=== PATIENT | male | born 1960 | race African-American/Black ===

== ENCOUNTER 2021-06-06 18:38 | Inpatient (IN) ==
[2021-06-06] MEDS ORDERED: SODIUM CHLORIDE 0.9% 1,000 ML IV STA (19:10)
[2021-06-06 19:41] LABS: Basophils % 0.2 % (0.0-0.8); Eosinophils % 0.1 % (0.00-10.9); Hematocrit 44.3 VOL% (42.0-52.0); Hemoglobin 13.7 GM/DL (14.0-18.0); Immature Granulocytes Absolute 0.62 #; Lymphocytes # 1.2 10*3/uL (1.4-4.0); Lymphocytes % 7.5 % (21.2-54.2); Mean Corpuscular HGB Conc 30.9 GM/DL (32-36); Mean Corpuscular Volume 85.5 FL (87-102); Mean Platelet Volume 11.1 FL (9.6-12.0); Monocytes % 3.2 % (1.7-12.7); NRBC # 0.07 10*3/uL; Platelet Count 312 T/CUMM (130-400); Red Blood Count 5.18 MC/CUMM (3.8-5.5); Red Cell Distribution Width 13.6 % (9.3-17.3); White Blood Count 15.6 T/CUMM (4-12)
[2021-06-06 19:48] LABS: ABG Base Excess 2.6 MMOL/L (-2.5-2.5); ABG HCO3 26.5 MMOL/L (20-26); ABG Oxygen Saturation 87.5 % (95-100); ABG PH 7.468 (7.35-7.45); ABG TCO2 22.8 MMOL/L (23-27)
[2021-06-06] MEDS ORDERED: SODIUM CHLORIDE 0.9% 2,000 ML IV STA (20:12)
[2021-06-06] MEDS ORDERED: DEXAMETHASONE 4 MG/1 ML VIAL IV STA (20:12)
[2021-06-06] MEDS ORDERED: PIPERACILLIN/TAZOBACTAM 3,375 MG in SODIUM CHLORIDE 0.9% 100 ML IV STA (20:12)
[2021-06-06 20:16] LABS: Albumin 2.6 G/DL (3.4-5.0); Bilirubin,Total 1.3 MG/DL (0.20-1.00); Calcium 8.7 MG/DL (8.5-10.1); Osmolality,Calculated 278.1 MOS/KG (273-304); Potassium 4.1 MMOL/L (3.5-5.1); Total Protein 8.2 G/DL (6.4-8.2)
[2021-06-06 20:26] LABS: Lymphocytes 10 % (20-55); Metamyelocytes 1 %; Microcytosis Slight; Myelocytes 1 %; Segmented Neutrophils 87 % (50-85); Total Cells Counted 100
[2021-06-06 20:27] LABS: Platelet Estimate Normal; Polychromasia Few
[2021-06-06 20:34] LABS: INR 1.3; PT Patient Result 14.5 SECS (10.5-12.0)
[2021-06-06] MEDS ORDERED: INSULIN REGULAR 100 UNIT/ML IV STA (20:36)
[2021-06-06] MEDS ORDERED: ONDANSETRON 4 MG/2 ML VIAL IV PRN (21:39)
[2021-06-06] MEDS ORDERED: DEXTROSE 50% 25 GM/50 ML VIAL IV PRN ×2 (21:39→22:03)
[2021-06-06] MEDS ORDERED: GLUCAGON 1 MG VIAL IM PRN ×2 (21:39→22:03)
[2021-06-06] MEDS ORDERED: ACETAMINOPHEN 325 MG TABLET PO PRN (21:39)
[2021-06-06] MEDS ORDERED: SODIUM CHLORIDE 0.9% 1,000 ML IV SCH (22:00)
[2021-06-06] MEDS: ENOXAPARIN 150 MG/ML SYRINGE SUBCUT SCH (22:00)
[2021-06-07] MEDS ORDERED: REMDESIVIR 200 MG in SODIUM CHLORIDE 0.9% 210 ML IV ONE (00:30)
[2021-06-07] MEDS ORDERED: REMDESIVIR 100 MG in SODIUM CHLORIDE 0.9% 100 ML IV SCH (00:45)
[2021-06-07] MEDS: PIPERACILLIN/TAZOBACTAM 3,375 MG in SODIUM CHLORIDE 0.9% 100 ML IV SCH ×3 (01:10→17:51)
[2021-06-07 04:28] LABS: Basophils % 0.1 % (0.0-0.8); Hematocrit 39.4 VOL% (42.0-52.0); Hemoglobin 12.4 GM/DL (14.0-18.0); Immature Granulocytes Absolute 0.42 #; Lymphocytes # 1.1 10*3/uL (1.4-4.0); Lymphocytes % 7.7 % (21.2-54.2); Mean Corpuscular HGB Conc 31.5 GM/DL (32-36); Mean Corpuscular Volume 85.3 FL (87-102); Mean Platelet Volume 11.3 FL (9.6-12.0); Monocytes % 2.6 % (1.7-12.7); NRBC # 0.03 10*3/uL; Neutrophils % 86.6 % (38.7-73.9); Platelet Count 251 T/CUMM (130-400); Red Blood Count 4.62 MC/CUMM (3.8-5.5); Red Cell Distribution Width 13.8 % (9.3-17.3); White Blood Count 13.8 T/CUMM (4-12)
[2021-06-07 04:50] LABS: Calcium 7.9 MG/DL (8.5-10.1); Osmolality,Calculated 285.2 MOS/KG (273-304); Potassium 4.7 MMOL/L (3.5-5.1)
[2021-06-07 04:58] LABS: Ferritin 713.4 ng/ml (26-388)
[2021-06-07] MEDS: FUROSEMIDE 40 MG/4 ML VIAL IV SCH ×4 (09:00→18:57)
[2021-06-07] MEDS: ZINC SULFATE 220 MG CAPSULE PO SCH (09:00)
[2021-06-07] MEDS ORDERED: INSULIN DETEMIR 100 UNIT/ML SUBCUT SCH (09:00)
[2021-06-07] MEDS ORDERED: DEXAMETHASONE INJ 10 MG in SODIUM CHLORIDE 0.9% 50 ML IV SCH (09:00)
[2021-06-07] MEDS: ALBUMIN 25% 25 GM/100 ML VIAL IV SCH ×4 (09:00→21:58)
[2021-06-07] MEDS: CHOLECALCIFEROL 5,000 UNIT TABLET PO SCH (09:00)
[2021-06-07] MEDS: CETIRIZINE 10 MG TABLET PO SCH (09:00)
[2021-06-07] MEDS: AZITHROMYCIN 250 MG TABLET PO SCH (09:00)
[2021-06-07] MEDS: ASCORBIC ACID 500 MG TABLET PO SCH ×2 (09:00→21:04)
[2021-06-07] MEDS: methylPREDNISolone SOD SUC 125 MG/2 ML VIAL IV SCH ×3 (09:00→21:06)
[2021-06-07] MEDS: FAMOTIDINE 20 MG TABLET PO SCH ×2 (09:00→21:04)
[2021-06-07] MEDS: INSULIN GLARGINE 100 UNIT/ML SUBCUT SCH ×2 (09:20→21:05)
[2021-06-07] MEDS: INSULIN REGULAR 100 UNIT/ML SUBCUT SCH ×4 (09:20→21:05)
[2021-06-07] MEDS: SODIUM CHLORIDE 0.9% 1,000 ML IV SCH ×3 (11:14→18:08)
[2021-06-07] MEDS: MELATONIN 3 MG TABLET PO SCH (21:04)
[2021-06-07] MEDS: ENOXAPARIN 150 MG/ML SYRINGE SUBCUT SCH (21:58)
[2021-06-08] MEDS: FUROSEMIDE 40 MG/4 ML VIAL IV SCH ×7 (00:02→23:12)
[2021-06-08] MEDS: PIPERACILLIN/TAZOBACTAM 3,375 MG in SODIUM CHLORIDE 0.9% 100 ML IV SCH ×4 (00:05→23:11)
[2021-06-08] MEDS: ALBUMIN 25% 25 GM/100 ML VIAL IV SCH ×6 (01:40→22:15)
[2021-06-08] MEDS: methylPREDNISolone SOD SUC 125 MG/2 ML VIAL IV SCH ×4 (02:39→22:16)
[2021-06-08] MEDS: SODIUM CHLORIDE 0.9% 1,000 ML IV SCH ×2 (04:08→15:06)
[2021-06-08 04:11] LABS: Basophils % 0.2 % (0.0-0.8); Hematocrit 37.4 VOL% (42.0-52.0); Immature Granulocytes % 1.8 %; Immature Granulocytes Absolute 0.31 #; Lymphocytes # 0.8 10*3/uL (1.4-4.0); Lymphocytes % 4.8 % (21.2-54.2); Mean Corpuscular HGB Conc 32.1 GM/DL (32-36); Mean Corpuscular Volume 82.7 FL (87-102); Mean Platelet Volume 11.5 FL (9.6-12.0); Monocytes % 1.9 % (1.7-12.7); NRBC # 0.04 10*3/uL; Neutrophils % 91.3 % (38.7-73.9); Platelet Count 249 T/CUMM (130-400); Red Blood Count 4.52 MC/CUMM (3.8-5.5); Red Cell Distribution Width 13.4 % (9.3-17.3); White Blood Count 16.8 T/CUMM (4-12)
[2021-06-08 04:36] LABS: Band Neutrophils 2 % (0-10); Lymphocytes 2 % (20-55); Segmented Neutrophils 94 % (50-85); Total Cells Counted 100
[2021-06-08 04:37] LABS: Hypochromasia 1+; Microcytosis 1+
[2021-06-08 04:38] LABS: Platelet Estimate Normal; Polychromasia Slight
[2021-06-08 04:58] LABS: Albumin 3.2 G/DL (3.4-5.0); Calcium 8.5 MG/DL (8.5-10.1); Total Protein 7.2 G/DL (6.4-8.2)
[2021-06-08 04:59] LABS: Potassium 3.4 MMOL/L (3.5-5.1)
[2021-06-08 05:00] LABS: Ferritin 698.9 ng/ml (26-388)
[2021-06-08] MEDS ORDERED: DEXTROSE 50% 25 GM/50 ML VIAL IV PRN (08:07)
[2021-06-08] MEDS: CHOLECALCIFEROL 5,000 UNIT TABLET PO SCH (08:55)
[2021-06-08] MEDS: CETIRIZINE 10 MG TABLET PO SCH (08:55)
[2021-06-08] MEDS: ASCORBIC ACID 500 MG TABLET PO SCH ×2 (08:55→22:00)
[2021-06-08] MEDS: FAMOTIDINE 20 MG TABLET PO SCH ×2 (08:55→22:00)
[2021-06-08] MEDS: AZITHROMYCIN 250 MG TABLET PO SCH (08:55)
[2021-06-08] MEDS: ZINC SULFATE 220 MG CAPSULE PO SCH (08:55)
[2021-06-08] MEDS ORDERED: INSULIN GLARGINE 100 UNIT/ML SUBCUT SCH (09:00)
[2021-06-08] MEDS: INSULIN REGULAR 100 UNIT/ML SUBCUT SCH ×4 (10:00→23:09)
[2021-06-08] MEDS ORDERED: REMDESIVIR 100 MG in SODIUM CHLORIDE 0.9% 100 ML IV SCH (21:00)
[2021-06-08] MEDS: ENOXAPARIN 150 MG/ML SYRINGE SUBCUT SCH (22:00)
[2021-06-08] MEDS: MELATONIN 3 MG TABLET PO SCH (22:17)
[2021-06-08] MEDS: INSULIN GLARGINE 100 UNIT/ML SUBCUT SCH (23:10)
[2021-06-09] MEDS: SODIUM CHLORIDE 0.9% 1,000 ML IV SCH ×4 (01:46→21:06)
[2021-06-09] MEDS: ALBUMIN 25% 25 GM/100 ML VIAL IV SCH ×2 (02:08→05:35)
[2021-06-09] MEDS: methylPREDNISolone SOD SUC 125 MG/2 ML VIAL IV SCH ×3 (03:10→20:52)
[2021-06-09] MEDS: FUROSEMIDE 40 MG/4 ML VIAL IV SCH ×2 (03:49→07:29)
[2021-06-09 04:35] LABS: Basophils % 0.2 % (0.0-0.8); Hematocrit 38.1 VOL% (42.0-52.0); Hemoglobin 12.7 GM/DL (14.0-18.0); Immature Granulocytes % 2.4 %; Immature Granulocytes Absolute 0.46 #; Lymphocytes # 0.7 10*3/uL (1.4-4.0); Lymphocytes % 3.9 % (21.2-54.2); Mean Corpuscular HGB Conc 33.3 GM/DL (32-36); Mean Corpuscular Volume 81.9 FL (87-102); Mean Platelet Volume 11.6 FL (9.6-12.0); Monocytes % 2.2 % (1.7-12.7); NRBC # 0.05 10*3/uL; Neutrophils % 91.3 % (38.7-73.9); Platelet Count 275 T/CUMM (130-400); Red Blood Count 4.65 MC/CUMM (3.8-5.5); Red Cell Distribution Width 13.3 % (9.3-17.3); White Blood Count 18.9 T/CUMM (4-12)
[2021-06-09 05:01] LABS: Lymphocytes 1 % (20-55); Platelet Estimate Adequate; Segmented Neutrophils 97 % (50-85); Total Cells Counted 100
[2021-06-09 05:02] LABS: Hypochromasia 1+; Microcytosis 1+
[2021-06-09 05:17] LABS: Bilirubin,Total 1.1 MG/DL (0.20-1.00); Calcium 8.8 MG/DL (8.5-10.1); Osmolality,Calculated 284.2 MOS/KG (273-304); Potassium 2.8 MMOL/L (3.5-5.1); Total Protein 7.7 G/DL (6.4-8.2)
[2021-06-09 05:23] LABS: Ferritin 475.1 ng/ml (26-388)
[2021-06-09] MEDS: PIPERACILLIN/TAZOBACTAM 3,375 MG in SODIUM CHLORIDE 0.9% 100 ML IV SCH ×3 (05:35→23:44)
[2021-06-09] MEDS: POTASSIUM CHLORIDE 20 MEQ TABLET PO PRN ×4 (06:09→12:32)
[2021-06-09] MEDS: INSULIN REGULAR 100 UNIT/ML SUBCUT SCH ×6 (08:29→20:53)
[2021-06-09] MEDS: INSULIN GLARGINE 100 UNIT/ML SUBCUT SCH (08:30)
[2021-06-09] MEDS: FAMOTIDINE 20 MG TABLET PO SCH ×2 (08:30→20:53)
[2021-06-09] MEDS: CETIRIZINE 10 MG TABLET PO SCH (08:31)
[2021-06-09] MEDS: AZITHROMYCIN 250 MG TABLET PO SCH (08:31)
[2021-06-09] MEDS: ASCORBIC ACID 500 MG TABLET PO SCH ×2 (08:31→20:53)
[2021-06-09] MEDS: ZINC SULFATE 220 MG CAPSULE PO SCH (08:31)
[2021-06-09] MEDS: CHOLECALCIFEROL 5,000 UNIT TABLET PO SCH (08:31)
[2021-06-09] MEDS: ENOXAPARIN 120 MG/0.8 ML SYRINGE SUBCUT SCH ×2 (11:21→23:41)
[2021-06-09] MEDS ORDERED: INSULIN GLARGINE 100 UNIT/ML SUBCUT ONE (13:00)
[2021-06-09] MEDS ORDERED: oxyCODONE/ACETAMINOPHEN 5-325 MG TABLET PO PRN (18:23)
[2021-06-09] MEDS ORDERED: KETOROLAC 10 MG TABLET PO PRN (18:23)
[2021-06-09] MEDS: AMIODARONE 200 MG TABLET PO SCH (20:53)
[2021-06-09] MEDS: MELATONIN 3 MG TABLET PO SCH (20:53)
[2021-06-09] MEDS: ATORVASTATIN 40 MG TABLET PO SCH (20:53)
[2021-06-10] MEDS: INSULIN REGULAR 100 UNIT/ML SUBCUT SCH ×7 (00:11→20:29)
[2021-06-10 04:37] LABS: Basophils % 0.2 % (0.0-0.8); Hematocrit 38.9 VOL% (42.0-52.0); Hemoglobin 12.2 GM/DL (14.0-18.0); Immature Granulocytes % 2.6 %; Immature Granulocytes Absolute 0.44 #; Lymphocytes # 0.8 10*3/uL (1.4-4.0); Lymphocytes % 4.7 % (21.2-54.2); Mean Corpuscular HGB Conc 31.4 GM/DL (32-36); Mean Corpuscular Volume 83.8 FL (87-102); Mean Platelet Volume 11.3 FL (9.6-12.0); Neutrophils % 90.5 % (38.7-73.9); Platelet Count 297 T/CUMM (130-400); Red Blood Count 4.64 MC/CUMM (3.8-5.5); Red Cell Distribution Width 13.5 % (9.3-17.3); White Blood Count 17.2 T/CUMM (4-12)
[2021-06-10 04:44] LABS: ABG Base Excess 8.1 MMOL/L (-2.5-2.5); ABG HCO3 31.9 MMOL/L (20-26); ABG Oxygen Saturation 95.2 % (95-100); ABG PCO2 47.6 MM HG (35-48); ABG PH 7.454 (7.35-7.45); ABG PO2 80.3 MM HG (80-95); ABG TCO2 29.3 MMOL/L (23-27)
[2021-06-10 04:57] LABS: Albumin 3.2 G/DL (3.4-5.0); Bilirubin,Total 0.7 MG/DL (0.20-1.00); Calcium 8.3 MG/DL (8.5-10.1); Osmolality,Calculated 287.4 MOS/KG (273-304); Potassium 3.3 MMOL/L (3.5-5.1); Total Protein 6.6 G/DL (6.4-8.2)
[2021-06-10 05:03] LABS: Hypochromasia 1+; Lymphocytes 10 % (20-55); Microcytosis 1+; Platelet Estimate Adequate; Segmented Neutrophils 89 % (50-85); Total Cells Counted 100
[2021-06-10] MEDS: PIPERACILLIN/TAZOBACTAM 3,375 MG in SODIUM CHLORIDE 0.9% 100 ML IV SCH ×3 (05:46→21:31)
[2021-06-10] MEDS: POTASSIUM CHLORIDE 20 MEQ TABLET PO PRN ×3 (05:46→16:12)
[2021-06-10] MEDS: SODIUM CHLORIDE 0.9% 1,000 ML IV SCH ×2 (05:51→07:50)
[2021-06-10] MEDS: ASPIRIN EC 81 MG TABLET PO SCH (08:07)
[2021-06-10] MEDS: CHOLECALCIFEROL 5,000 UNIT TABLET PO SCH (08:08)
[2021-06-10] MEDS: ASCORBIC ACID 500 MG TABLET PO SCH ×2 (08:08→20:29)
[2021-06-10] MEDS: AMIODARONE 200 MG TABLET PO SCH ×2 (08:08→20:29)
[2021-06-10] MEDS: FAMOTIDINE 20 MG TABLET PO SCH ×2 (08:08→20:29)
[2021-06-10] MEDS: AZITHROMYCIN 250 MG TABLET PO SCH (08:08)
[2021-06-10] MEDS: CETIRIZINE 10 MG TABLET PO SCH (08:08)
[2021-06-10] MEDS: ZINC SULFATE 220 MG CAPSULE PO SCH (08:08)
[2021-06-10] MEDS: FUROSEMIDE 40 MG TABLET PO SCH (08:08)
[2021-06-10] MEDS: INSULIN GLARGINE 100 UNIT/ML SUBCUT SCH (08:08)
[2021-06-10] MEDS: methylPREDNISolone SOD SUC 125 MG/2 ML VIAL IV SCH ×2 (08:09→20:29)
[2021-06-10] MEDS: ENOXAPARIN 120 MG/0.8 ML SYRINGE SUBCUT SCH ×2 (11:42→22:33)
[2021-06-10] MEDS: ATORVASTATIN 40 MG TABLET PO SCH (20:29)
[2021-06-10] MEDS: MELATONIN 3 MG TABLET PO SCH (20:29)
[2021-06-11] MEDS: INSULIN REGULAR 100 UNIT/ML SUBCUT SCH ×7 (00:18→23:57)
[2021-06-11 04:50] LABS: ABG Base Excess 6.7 MMOL/L (-2.5-2.5); ABG HCO3 30.4 MMOL/L (20-26); ABG Oxygen Saturation 95.1 % (95-100); ABG PCO2 50.8 MM HG (35-48); ABG PH 7.417 (7.35-7.45); ABG PO2 81.2 MM HG (80-95); ABG TCO2 28.4 MMOL/L (23-27)
[2021-06-11 06:05] LABS: Basophils % 0.1 % (0.0-0.8); Eosinophils % 0.1 % (0.00-10.9); Hematocrit 42.3 VOL% (42.0-52.0); Hemoglobin 13.2 GM/DL (14.0-18.0); Immature Granulocytes % 2.4 %; Immature Granulocytes Absolute 0.33 #; Lymphocytes # 1.5 10*3/uL (1.4-4.0); Mean Corpuscular HGB Conc 31.2 GM/DL (32-36); Mean Corpuscular Volume 85.3 FL (87-102); Mean Platelet Volume 11.2 FL (9.6-12.0); Monocytes % 2.7 % (1.7-12.7); Neutrophils % 83.7 % (38.7-73.9); Platelet Count 307 T/CUMM (130-400); Red Blood Count 4.96 MC/CUMM (3.8-5.5); Red Cell Distribution Width 13.7 % (9.3-17.3); White Blood Count 13.6 T/CUMM (4-12)
[2021-06-11] MEDS: PIPERACILLIN/TAZOBACTAM 3,375 MG in SODIUM CHLORIDE 0.9% 100 ML IV SCH ×3 (06:15→21:19)
[2021-06-11 06:26] LABS: Calcium 8.5 MG/DL (8.5-10.1); Osmolality,Calculated 288.3 MOS/KG (273-304); Potassium 3.4 MMOL/L (3.5-5.1)
[2021-06-11] MEDS: methylPREDNISolone SOD SUC 125 MG/2 ML VIAL IV SCH ×2 (08:10→21:19)
[2021-06-11] MEDS: POTASSIUM CHLORIDE 20 MEQ TABLET PO PRN (08:11)
[2021-06-11] MEDS: ASCORBIC ACID 500 MG TABLET PO SCH ×2 (08:12→21:19)
[2021-06-11] MEDS: FUROSEMIDE 40 MG TABLET PO SCH (08:12)
[2021-06-11] MEDS: CHOLECALCIFEROL 5,000 UNIT TABLET PO SCH (08:12)
[2021-06-11] MEDS: CETIRIZINE 10 MG TABLET PO SCH (08:12)
[2021-06-11] MEDS: AMIODARONE 200 MG TABLET PO SCH ×2 (08:12→21:19)
[2021-06-11] MEDS: ASPIRIN EC 81 MG TABLET PO SCH (08:12)
[2021-06-11] MEDS: FAMOTIDINE 20 MG TABLET PO SCH ×2 (08:12→21:19)
[2021-06-11] MEDS: AZITHROMYCIN 250 MG TABLET PO SCH (08:12)
[2021-06-11] MEDS: ZINC SULFATE 220 MG CAPSULE PO SCH (08:12)
[2021-06-11] MEDS: INSULIN GLARGINE 100 UNIT/ML SUBCUT SCH (08:13)
[2021-06-11] MEDS: ENOXAPARIN 120 MG/0.8 ML SYRINGE SUBCUT SCH ×2 (12:00→22:29)
[2021-06-11] MEDS: ATORVASTATIN 40 MG TABLET PO SCH (21:19)
[2021-06-11] MEDS: MELATONIN 3 MG TABLET PO SCH (21:19)
[2021-06-12] MEDS: INSULIN REGULAR 100 UNIT/ML SUBCUT SCH ×5 (04:54→22:04)
[2021-06-12 05:24] LABS: Basophils % 0.2 % (0.0-0.8); Hematocrit 44.1 VOL% (42.0-52.0); Hemoglobin 13.5 GM/DL (14.0-18.0); Immature Granulocytes % 2.6 %; Immature Granulocytes Absolute 0.34 #; Lymphocytes # 0.7 10*3/uL (1.4-4.0); Lymphocytes % 5.3 % (21.2-54.2); Mean Corpuscular HGB Conc 30.6 GM/DL (32-36); Mean Corpuscular Volume 86.5 FL (87-102); Mean Platelet Volume 11.2 FL (9.6-12.0); Monocytes % 2.7 % (1.7-12.7); Neutrophils % 89.2 % (38.7-73.9); Platelet Count 309 T/CUMM (130-400); Red Cell Distribution Width 13.7 % (9.3-17.3); White Blood Count 13.2 T/CUMM (4-12)
[2021-06-12 05:45] LABS: Calcium 8.5 MG/DL (8.5-10.1); Potassium 4.4 MMOL/L (3.5-5.1)
[2021-06-12 05:50] LABS: Osmolality,Calculated 279.8 MOS/KG (273-304)
[2021-06-12] MEDS: PIPERACILLIN/TAZOBACTAM 3,375 MG in SODIUM CHLORIDE 0.9% 100 ML IV SCH ×3 (06:01→22:06)
[2021-06-12] MEDS: INSULIN GLARGINE 100 UNIT/ML SUBCUT SCH (08:25)
[2021-06-12] MEDS: methylPREDNISolone SOD SUC 125 MG/2 ML VIAL IV SCH ×2 (08:25→22:04)
[2021-06-12] MEDS: CHOLECALCIFEROL 5,000 UNIT TABLET PO SCH (08:26)
[2021-06-12] MEDS: AMIODARONE 200 MG TABLET PO SCH ×2 (08:26→22:05)
[2021-06-12] MEDS: ASPIRIN EC 81 MG TABLET PO SCH (08:26)
[2021-06-12] MEDS: FUROSEMIDE 40 MG TABLET PO SCH (08:26)
[2021-06-12] MEDS: ASCORBIC ACID 500 MG TABLET PO SCH ×2 (08:26→22:05)
[2021-06-12] MEDS: CETIRIZINE 10 MG TABLET PO SCH (08:26)
[2021-06-12] MEDS: FAMOTIDINE 20 MG TABLET PO SCH ×2 (08:26→22:05)
[2021-06-12] MEDS: ZINC SULFATE 220 MG CAPSULE PO SCH (08:26)
[2021-06-12] MEDS: ENOXAPARIN 120 MG/0.8 ML SYRINGE SUBCUT SCH ×2 (12:35→22:04)
[2021-06-12] MEDS: ATORVASTATIN 40 MG TABLET PO SCH (22:05)
[2021-06-12] MEDS: MELATONIN 3 MG TABLET PO SCH (22:05)
[2021-06-13] MEDS: INSULIN REGULAR 100 UNIT/ML SUBCUT SCH ×7 (00:11→23:39)
[2021-06-13 05:44] LABS: Basophils % 0.1 % (0.0-0.8); Hematocrit 42.4 VOL% (42.0-52.0); Hemoglobin 13.3 GM/DL (14.0-18.0); Immature Granulocytes % 2.8 %; Immature Granulocytes Absolute 0.38 #; Lymphocytes # 0.6 10*3/uL (1.4-4.0); Lymphocytes % 4.4 % (21.2-54.2); Mean Corpuscular HGB Conc 31.4 GM/DL (32-36); Mean Corpuscular Volume 85.5 FL (87-102); Mean Platelet Volume 11.5 FL (9.6-12.0); Monocytes % 2.9 % (1.7-12.7); Neutrophils % 89.8 % (38.7-73.9); Platelet Count 326 T/CUMM (130-400); Red Blood Count 4.96 MC/CUMM (3.8-5.5); Red Cell Distribution Width 13.7 % (9.3-17.3); White Blood Count 13.6 T/CUMM (4-12)
[2021-06-13 06:02] LABS: Calcium 8.2 MG/DL (8.5-10.1); Osmolality,Calculated 286.1 MOS/KG (273-304); Potassium 4.4 MMOL/L (3.5-5.1)
[2021-06-13] MEDS: PIPERACILLIN/TAZOBACTAM 3,375 MG in SODIUM CHLORIDE 0.9% 100 ML IV SCH (06:16)
[2021-06-13 06:36] LABS: Lymphocytes 6 % (20-55); Platelet Estimate Normal; Segmented Neutrophils 91 % (50-85)
[2021-06-13 06:37] LABS: Total Cells Counted 100
[2021-06-13] MEDS: INSULIN GLARGINE 100 UNIT/ML SUBCUT SCH (08:23)
[2021-06-13] MEDS: ZINC SULFATE 220 MG CAPSULE PO SCH (08:24)
[2021-06-13] MEDS: ASCORBIC ACID 500 MG TABLET PO SCH ×2 (08:24→20:15)
[2021-06-13] MEDS: methylPREDNISolone SOD SUC 125 MG/2 ML VIAL IV SCH (08:24)
[2021-06-13] MEDS: CETIRIZINE 10 MG TABLET PO SCH (08:25)
[2021-06-13] MEDS: ASPIRIN EC 81 MG TABLET PO SCH (08:25)
[2021-06-13] MEDS: FAMOTIDINE 20 MG TABLET PO SCH ×2 (08:25→20:15)
[2021-06-13] MEDS: AMIODARONE 200 MG TABLET PO SCH ×2 (08:25→20:15)
[2021-06-13] MEDS: CHOLECALCIFEROL 5,000 UNIT TABLET PO SCH (08:25)
[2021-06-13] MEDS: FUROSEMIDE 40 MG TABLET PO SCH (08:25)
[2021-06-13] MEDS: ENOXAPARIN 120 MG/0.8 ML SYRINGE SUBCUT SCH ×2 (11:46→22:05)
[2021-06-13] MEDS: MELATONIN 3 MG TABLET PO SCH (20:15)
[2021-06-13] MEDS: ATORVASTATIN 40 MG TABLET PO SCH (20:15)
[2021-06-13] MEDS: methylPREDNISolone SOD SUC 40 MG/1 ML VIAL IV SCH (20:17)
[2021-06-14] MEDS: INSULIN REGULAR 100 UNIT/ML SUBCUT SCH ×5 (04:40→20:12)
[2021-06-14 05:04] LABS: Basophils % 0.2 % (0.0-0.8); Hematocrit 41.3 VOL% (42.0-52.0); Hemoglobin 13.2 GM/DL (14.0-18.0); Immature Granulocytes % 1.7 %; Immature Granulocytes Absolute 0.28 #; Lymphocytes # 0.8 10*3/uL (1.4-4.0); Lymphocytes % 4.9 % (21.2-54.2); Mean Corpuscular Volume 85.3 FL (87-102); Monocytes % 4.4 % (1.7-12.7); Neutrophils % 88.8 % (38.7-73.9); Platelet Count 349 T/CUMM (130-400); Red Blood Count 4.84 MC/CUMM (3.8-5.5); Red Cell Distribution Width 13.6 % (9.3-17.3); White Blood Count 16.1 T/CUMM (4-12)
[2021-06-14 05:28] LABS: Lymphocytes 3 % (20-55); Platelet Estimate Adequate; Segmented Neutrophils 94 % (50-85); Total Cells Counted 100
[2021-06-14 05:37] LABS: Calcium 8.4 MG/DL (8.5-10.1); Osmolality,Calculated 281.7 MOS/KG (273-304); Potassium 4.4 MMOL/L (3.5-5.1)
[2021-06-14] MEDS: INSULIN GLARGINE 100 UNIT/ML SUBCUT SCH (08:37)
[2021-06-14] MEDS: ASPIRIN EC 81 MG TABLET PO SCH (08:38)
[2021-06-14] MEDS: methylPREDNISolone SOD SUC 40 MG/1 ML VIAL IV SCH ×2 (08:38→20:12)
[2021-06-14] MEDS: ZINC SULFATE 220 MG CAPSULE PO SCH (08:39)
[2021-06-14] MEDS: FAMOTIDINE 20 MG TABLET PO SCH ×2 (08:39→20:12)
[2021-06-14] MEDS: FUROSEMIDE 40 MG TABLET PO SCH (08:39)
[2021-06-14] MEDS: CETIRIZINE 10 MG TABLET PO SCH (08:39)
[2021-06-14] MEDS: AMIODARONE 200 MG TABLET PO SCH ×2 (08:39→20:12)
[2021-06-14] MEDS: CHOLECALCIFEROL 5,000 UNIT TABLET PO SCH (08:39)
[2021-06-14] MEDS: ASCORBIC ACID 500 MG TABLET PO SCH ×2 (08:39→20:13)
[2021-06-14] MEDS: ENOXAPARIN 120 MG/0.8 ML SYRINGE SUBCUT SCH (12:13)
[2021-06-14] MEDS: ATORVASTATIN 40 MG TABLET PO SCH (20:12)
[2021-06-14] MEDS: MELATONIN 3 MG TABLET PO SCH (20:12)
[2021-06-15] MEDS: ENOXAPARIN 120 MG/0.8 ML SYRINGE SUBCUT SCH ×2 (00:01→10:42)
[2021-06-15] MEDS: INSULIN REGULAR 100 UNIT/ML SUBCUT SCH ×6 (00:01→22:15)
[2021-06-15 05:26] LABS: Basophils % 0.1 % (0.0-0.8); Eosinophils % 0.1 % (0.00-10.9); Hemoglobin 12.5 GM/DL (14.0-18.0); Immature Granulocytes % 2.2 %; Immature Granulocytes Absolute 0.22 #; Lymphocytes # 0.6 10*3/uL (1.4-4.0); Lymphocytes % 5.9 % (21.2-54.2); Mean Corpuscular HGB Conc 30.5 GM/DL (32-36); Mean Corpuscular Volume 86.9 FL (87-102); Monocytes % 5.9 % (1.7-12.7); Neutrophils % 85.8 % (38.7-73.9); Platelet Count 324 T/CUMM (130-400); Red Blood Count 4.72 MC/CUMM (3.8-5.5); Red Cell Distribution Width 13.9 % (9.3-17.3); White Blood Count 10.1 T/CUMM (4-12)
[2021-06-15 05:47] LABS: Calcium 8.2 MG/DL (8.5-10.1); Osmolality,Calculated 284.8 MOS/KG (273-304); Potassium 4.7 MMOL/L (3.5-5.1)
[2021-06-15] MEDS: ASCORBIC ACID 500 MG TABLET PO SCH ×2 (09:43→21:58)
[2021-06-15] MEDS: methylPREDNISolone SOD SUC 40 MG/1 ML VIAL IV SCH ×2 (09:43→21:58)
[2021-06-15] MEDS: AMIODARONE 200 MG TABLET PO SCH ×2 (09:43→21:58)
[2021-06-15] MEDS: FUROSEMIDE 40 MG TABLET PO SCH (09:43)
[2021-06-15] MEDS: ZINC SULFATE 220 MG CAPSULE PO SCH (09:43)
[2021-06-15] MEDS: FAMOTIDINE 20 MG TABLET PO SCH ×2 (09:43→21:58)
[2021-06-15] MEDS: ASPIRIN EC 81 MG TABLET PO SCH (09:43)
[2021-06-15] MEDS: INSULIN GLARGINE 100 UNIT/ML SUBCUT SCH (09:43)
[2021-06-15] MEDS: CHOLECALCIFEROL 5,000 UNIT TABLET PO SCH (09:43)
[2021-06-15] MEDS: CETIRIZINE 10 MG TABLET PO SCH (09:43)
[2021-06-15] MEDS: ATORVASTATIN 40 MG TABLET PO SCH (21:58)
[2021-06-15] MEDS: MELATONIN 3 MG TABLET PO SCH (21:58)
[2021-06-16] MEDS: ENOXAPARIN 120 MG/0.8 ML SYRINGE SUBCUT SCH ×3 (01:32→21:24)
[2021-06-16] MEDS: INSULIN REGULAR 100 UNIT/ML SUBCUT SCH ×6 (01:55→21:23)
[2021-06-16 05:29] LABS: Basophils % 0.2 % (0.0-0.8); Eosinophils % 0.1 % (0.00-10.9); Hematocrit 41.8 VOL% (42.0-52.0); Hemoglobin 13.2 GM/DL (14.0-18.0); Immature Granulocytes % 1.9 %; Immature Granulocytes Absolute 0.17 #; Lymphocytes # 0.7 10*3/uL (1.4-4.0); Lymphocytes % 8.4 % (21.2-54.2); Mean Corpuscular HGB Conc 31.6 GM/DL (32-36); Mean Corpuscular Volume 85.1 FL (87-102); Mean Platelet Volume 11.1 FL (9.6-12.0); Monocytes % 5.8 % (1.7-12.7); Neutrophils % 83.6 % (38.7-73.9); Platelet Count 314 T/CUMM (130-400); Red Blood Count 4.91 MC/CUMM (3.8-5.5); Red Cell Distribution Width 14.2 % (9.3-17.3); White Blood Count 8.7 T/CUMM (4-12)
[2021-06-16 05:57] LABS: Calcium 8.7 MG/DL (8.5-10.1); Osmolality,Calculated 278.1 MOS/KG (273-304); Potassium 4.6 MMOL/L (3.5-5.1)
[2021-06-16] MEDS: methylPREDNISolone SOD SUC 40 MG/1 ML VIAL IV SCH (10:02)
[2021-06-16] MEDS: FAMOTIDINE 20 MG TABLET PO SCH ×2 (10:03→21:25)
[2021-06-16] MEDS: ZINC SULFATE 220 MG CAPSULE PO SCH (10:03)
[2021-06-16] MEDS: CHOLECALCIFEROL 5,000 UNIT TABLET PO SCH (10:03)
[2021-06-16] MEDS: FUROSEMIDE 40 MG TABLET PO SCH (10:03)
[2021-06-16] MEDS: ASPIRIN EC 81 MG TABLET PO SCH (10:03)
[2021-06-16] MEDS: ASCORBIC ACID 500 MG TABLET PO SCH ×2 (10:03→21:25)
[2021-06-16] MEDS: INSULIN GLARGINE 100 UNIT/ML SUBCUT SCH (10:03)
[2021-06-16] MEDS: AMIODARONE 200 MG TABLET PO SCH ×2 (10:04→21:23)
[2021-06-16] MEDS: CETIRIZINE 10 MG TABLET PO SCH (10:41)
[2021-06-16] MEDS ORDERED: INSULIN GLARGINE 100 UNIT/ML SUBCUT ONE (11:30)
[2021-06-16] MEDS: MELATONIN 3 MG TABLET PO SCH (21:24)
[2021-06-16] MEDS: ATORVASTATIN 40 MG TABLET PO SCH (21:24)
[2021-06-17 05:17] LABS: Basophils % 0.1 % (0.0-0.8); Eosinophils % 0.3 % (0.00-10.9); Hematocrit 43.6 VOL% (42.0-52.0); Hemoglobin 13.6 GM/DL (14.0-18.0); Immature Granulocytes % 1.6 %; Immature Granulocytes Absolute 0.15 #; Lymphocytes % 21.3 % (21.2-54.2); Mean Corpuscular HGB Conc 31.2 GM/DL (32-36); Mean Corpuscular Volume 86.2 FL (87-102); Mean Platelet Volume 11.2 FL (9.6-12.0); Monocytes % 8.7 % (1.7-12.7); Platelet Count 329 T/CUMM (130-400); Red Blood Count 5.06 MC/CUMM (3.8-5.5); Red Cell Distribution Width 14.6 % (9.3-17.3); White Blood Count 9.6 T/CUMM (4-12)
[2021-06-17 05:48] LABS: Albumin 2.7 G/DL (3.4-5.0); Bilirubin,Direct 0.14 MG/DL (0.0-0.20); Bilirubin,Indirect 0.6 MG/DL (0.0-1.0); Bilirubin,Total 0.7 MG/DL (0.20-1.00); Total Protein 6.3 G/DL (6.4-8.2)
[2021-06-17 06:06] LABS: Calcium 8.8 MG/DL (8.5-10.1); Osmolality,Calculated 280.7 MOS/KG (273-304)
[2021-06-17] MEDS: INSULIN REGULAR 100 UNIT/ML SUBCUT SCH ×4 (08:48→21:06)
[2021-06-17] MEDS: INSULIN GLARGINE 100 UNIT/ML SUBCUT SCH (09:01)
[2021-06-17] MEDS: methylPREDNISolone SOD SUC 40 MG/1 ML VIAL IV SCH (09:02)
[2021-06-17] MEDS: ZINC SULFATE 220 MG CAPSULE PO SCH (09:03)
[2021-06-17] MEDS: ASCORBIC ACID 500 MG TABLET PO SCH ×2 (09:03→21:07)
[2021-06-17] MEDS: FAMOTIDINE 20 MG TABLET PO SCH ×2 (09:03→21:07)
[2021-06-17] MEDS: ASPIRIN EC 81 MG TABLET PO SCH (09:04)
[2021-06-17] MEDS: AMIODARONE 200 MG TABLET PO SCH ×2 (09:04→21:06)
[2021-06-17] MEDS: FUROSEMIDE 40 MG TABLET PO SCH (09:04)
[2021-06-17] MEDS: ENOXAPARIN 120 MG/0.8 ML SYRINGE SUBCUT SCH ×2 (09:04→21:07)
[2021-06-17] MEDS: CHOLECALCIFEROL 5,000 UNIT TABLET PO SCH (09:04)
[2021-06-17] MEDS: CETIRIZINE 10 MG TABLET PO SCH (09:05)
[2021-06-17 12:12] LABS: HIV Antigen/Antibody Result Nonreactive (Nonreactive); Hepatitis B Surface Ag Quant < 0.10 Index; Hepatitis B Surface Ag Result Non-Reactive (NonReactive); Hepatitis C Virus Ab Quant 0.05 Index; Hepatitis C Virus Ab Result Non-Reactive (NonReactive)
[2021-06-17] MEDS: ATORVASTATIN 40 MG TABLET PO SCH (21:07)
[2021-06-17] MEDS: MELATONIN 3 MG TABLET PO SCH (21:07)
[2021-06-18] MEDS: ASPIRIN EC 81 MG TABLET PO SCH (08:54)
[2021-06-18] MEDS: ASCORBIC ACID 500 MG TABLET PO SCH (08:54)
[2021-06-18] MEDS: CHOLECALCIFEROL 5,000 UNIT TABLET PO SCH (08:54)
[2021-06-18] MEDS: AMIODARONE 200 MG TABLET PO SCH (08:54)
[2021-06-18] MEDS: ZINC SULFATE 220 MG CAPSULE PO SCH (08:54)
[2021-06-18] MEDS: CETIRIZINE 10 MG TABLET PO SCH (08:54)
[2021-06-18] MEDS: FUROSEMIDE 40 MG TABLET PO SCH (08:54)
[2021-06-18] MEDS: INSULIN REGULAR 100 UNIT/ML SUBCUT SCH ×2 (08:55→12:28)
[2021-06-18] MEDS: ENOXAPARIN 120 MG/0.8 ML SYRINGE SUBCUT SCH (08:56)
[2021-06-18] MEDS: INSULIN GLARGINE 100 UNIT/ML SUBCUT SCH (08:56)
[2021-06-18] MEDS: methylPREDNISolone SOD SUC 40 MG/1 ML VIAL IV SCH (08:56)
[2021-06-18] MEDS: FAMOTIDINE 20 MG TABLET PO SCH (09:39)
[2021-06-18 12:52] VITALS: BP 120/81
== END 2021-06-18 15:20 | disposition home or self-care (01) | DRG 720 ==
LOC: N.ED 18:38 → N.EDINP 21:39 → SUATTDRO 21:39 → N.CC 06-09 04:54 → N.2E 06-15 06:36
PROVIDERS: ADMIT Internal Medicine; ATTEND Emergency Medicine